=== PATIENT | female | born 1950 | race Caucasian/White ===

== ENCOUNTER 2016-10-22 11:55 | Emergency (ER) | payer MEDICARE, OTHER ==
[~2016-10-22] VITALS: Wt 63.5 kg
[2016-10-22] MEDS ORDERED: LIDOCAINE 1% (MDV) 20 ML INJ SC ONE (12:30)
[2016-10-22] MEDS ORDERED: POVIDONE IODINE 10% 28.4 GM OINT TOP ONE (12:30)
[2016-10-22] MEDS ORDERED: BACITRACIN 0.9 GM OINT TOP ONE (12:30)
--- NOTE | 2016-10-22 12:38 | ERD ---
ER Documentation Chief Complaint Date/Time DATE: 10/22/16 Chief Complaint Left medial great ingrown toenail HPI The patient is a 66-year-old female who presents to the emergency department with complaint of ingrown toenail. The patient reports that last week she was wearing a pair of shoes that appeared to be too small for her, and afterwards she developed pain to the medial aspect of the left great toenail. She believes that it is ingrown. She reports that she has had these symptoms many times in the past, which required partial nail removal. Therefore, she presents today. She admits to mild swelling, but otherwise denies any redness, warmth or drainage. Denies any bleeding. Denies any fevers, sweats, chills, nausea or vomiting. Denies any numbness, paresthesias or weakness of the distal extremities. Denies any wrist strict range of motion. The pain is worse with any applied pressure and ambulation, and is improved at rest. No other complaints at this time. ROS All systems reviewed and are negative except as per history of present illness. Medications Home Meds Active Scripts Cephalexin* (Keflex*) 500 Mg Capsule, 500 MG PO QID for 7 Days, CAP Prov:CRYSTAL SALAZAR PA-C 10/22/16 Acetaminophen* (Tylophen*) 500 Mg Capsule, 1 CAP PO Q6H Y for PAIN AND OR ELEVATED TEMP, #20 CAP Prov:CRYSTAL SALAZAR PA-C 10/22/16 Allergies Allergies: Coded Allergies: No Known Allergy (Unverified , 10/22/16) Physical Exam Vitals Vital Signs Date Time Temp Pulse Resp B/P Pulse Ox O2 Delivery O2 Flow Rate FiO2 10/22/16 11:57 98.1 85 17 149/63 98 Physical Exam GENERAL: Well-developed, well-nourished, female, in no acute distress HEENT: Head is normocephalic, atraumatic. No scleral pallor or icterus. Extraocular movements intact. Conjunctiva pink. Moist mucous membranes. NECK: Supple. RESPIRATORY: Lungs are clear to auscultation bilaterally. Equal breath sounds. Normal expiratory effort. CARDIOVASCULAR: Regular rate and rhythm. S1 and S2 normal. EXTREMITIES: No clubbing or cyanosis. Tenderness, mild warmth and swelling to the medial nailfold of the left great toe. Findings consistent with ingrown toenail. No drainage. No bleeding.Joints non-tender, no joint effusion. Full range of motion of both the upper and lower extremities bilaterally. Muscle tone is normal. Distal pulses are palpable, 2+ bilaterally. Capillary refill is less than 2 seconds. NEUROLOGIC: The patient is alert, awake, and oriented x 3. Motor grossly intact. INTEGUMENT: Skin is intact. Warm and dry. PSYCHIATRIC: Cooperative. Appropriate. Results 24 hrs Current Medications Medications (Trade) Dose Ordered Sig/Victor Manuel Route PRN Reason Start Time Stop Time Status Last Admin Dose Admin Lidocaine (Xylocaine 1% (Mdv) 20 ml) 20 ml ONCE ONCE SC 10/22/16 12:30 10/22/16 12:31 DC Povidone Iodine (Povidone-Iodine) 1 applic ONCE ONCE TOP 10/22/16 12:30 10/22/16 12:31 DC Bacitracin (Bacitracin Oint (Ud)) 1 applic ONCE ONCE TOP 10/22/16 12:30 10/22/16 12:31 DC 10/22/16 12:39 Procedures/MDM PROCEDURAL NOTE: Consent was obtained from the patient prior to the procedure. Indications, risks and benefits were explained at length. The patient was positioned appropriately. The site was prepared and cleansed with Betadine. A digit block was performed, and the site was anesthetized with approximately 2.5 mL of 1% lidocaine without epinephrine. Normal saline was used for wound irrigation. The area was prepared and draped in the usual sterile manner with the toe exposed. The ingrown toenail was localized to the medial aspect of the left toenail which was then excised using needle drivers and scissors. The patient tolerated the procedure well without complications. The wound was then dressed with bacitracin and sterile gauze. Standard post procedure care was explained, and return precautions were given. MEDICAL DECISION MAKING: This is a 66-year-old female presenting to the emergency department with an ingrown toenail that was excised. The patient reported immediate decreased pain upon completion of the procedure. The patient tolerated the procedure well with no new complaints. The patient was neurovascularly intact prior to and status post procedure. Standard post- procedure care was explained to the patient at length. At this time the patient in stable condition and not experiencing any pain and therefore can be discharged home with prescriptions for Tylenol and Keflex, and given strict return precautions for signs of infection, uncontrollable pain, or any form of worsening or deteriorating condition. The patient is advised to follow up in 2 days for wound check, reevaluation and further management or to return to the ER sooner for any new or worsening symptoms. I shared my medical decision making and plan with the patient at length and in great detail and the patient verbally understands and agrees with the plan for further observation and care as an outpatient. At the time of discharge all questions were answered. Departure Diagnosis: Primary Impression: Ingrown left greater toenail Condition: Stable Patient Instructions: Ingrown Toenail, Excised, Understanding Ingrown Toenails Additional Instructions: Llame al doctor MAANA y beena soha MARA PARA DENTRO DE 2 LINARES.Dgale a la secretaria que nosotros le instruimos hacer esta mara.Avise o llame si villalta condicin se empeora antes de la mara. Regresa aqui si peor o no mejor. CRYSTAL SALAZAR PA-C October 22, 2016 12:38
[2016-10-22] MEDS ORDERED: ACET500C5 PO (13:16)
[2016-10-22] MEDS ORDERED: CEPH-443 PO (13:16)
== END 2016-10-22 13:20 | disposition home or self-care (01) ==
LOC: FTE 11:55
DX: L60.0 Ingrowing nail (principal)